=== PATIENT | male | born 1950 | race Caucasian/White ===

== ENCOUNTER 2017-12-01 18:59 | Inpatient (IN) | payer OTHER ==
[~2017-12-01] VITALS: Ht 185.4 cm; Wt 148.0 kg
[2017-12-01 20:11] LABS: Basophils # (auto) 0 uL; Basophils % (auto) 0.3 % (0.0-2.0); Eosinophils # (auto) 0 uL; Eosinophils % (auto) 0.2 % (0.0-7.0); Hematocrit 33.3 % (41.0-53.0); Hemoglobin 10.8 g/dL (13.5-17.5); Lymphocytes # (auto) 0.6 uL; Lymphocytes % (auto) 3.9 % (10.0-50.0); Mean Corpuscular Hemoglobin 32.6 pg (28.0-32.0); Mean Corpuscular Hgb Conc. 32.6 g/dL (32.0-36.0); Monocytes # (auto) 0.9 uL; Monocytes % (auto) 6.2 % (0.0-12.0); Neutrophils # (auto) 13.2 uL; Neutrophils % (auto) 89.4 % (37.0-80.0); Nucleated Red Blood Cells % 0.1 %; Platelet Count (auto) 272 10^3/uL (140-450); Red Blood Cells 3.33 10^6/uL (4.5-5.90); Red Cell Distribution Width 16.1 % (11.8-14.3); White Blood Cell 14.8 10^3/uL (4.4-10.8)
[2017-12-01] MEDS ORDERED: ACETAMINOPHEN 325 MG TAB PO ONE (21:00)
[2017-12-01 21:25] LABS: Potassium 4.1 mmol/L (3.5-5.1)
[2017-12-01 21:26] LABS: Albumin 2.5 g/dL (3.4-5.0); BUN/Creatinine Ratio 4.6; Bilirubin, Total 0.5 mg/dL (0.2-1.0); Calcium 7.2 mg/dL (8.5-10.1); Total Protein 7.8 g/dL (6.4-8.2)
[2017-12-02] MEDS ORDERED: ACETAMINOPHEN 325 MG TAB PO PRN ×2 (00:30→05:30)
[2017-12-02] MEDS: cefTRIAXone 1GM/10ml IVPUSH 10 ML IV SCH ×2 (01:00→21:32)
[2017-12-02 01:15] LABS: INR 1.03 (0.9-1.15); Partial Thromboplastin Time 29.7 sec (23.78-33.04)
[2017-12-02] MEDS ORDERED: CALCIUM GLUC 4.65meq/50ml D5AE 50 ML IV ONE (05:30)
[2017-12-02] MEDS ORDERED: TEMAZEPAM 15 MG CAP PO PRN (05:30)
[2017-12-02] MEDS ORDERED: MORPHINE SULF INJ 2 MG/ML SYRINGE 1ML IV PRN (05:30)
[2017-12-02] MEDS ORDERED: ONDANSETRON HCL 4 MG/2 ML VIAL IV PRN (05:30)
[2017-12-02] MEDS ORDERED: ALBUMIN 5% 250 ML IV ONE (05:30)
[2017-12-02] MEDS ORDERED: NITROGLYCERIN 0.4 MG SL TAB SL PRN (05:30)
[2017-12-02] MEDS ORDERED: DEXTROSE (50%) 50ML SYRG IV PRN (05:30)
[2017-12-02] MEDS: InsuLIN REG 1unit/0.01ml Soln (100units/ml) SC SCH ×3 (06:48→18:31)
[2017-12-02] MEDS: ACCU-CHEK COMFORT CURVE STRIP VI SCH ×3 (06:48→17:44)
[2017-12-02 08:37] VITALS: BP 126/47
[2017-12-02 09:00] VITALS: BP 126/47
[2017-12-02] MEDS: PANTOPRAZOLE 40 MG TAB PO SCH (09:49)
[2017-12-02] MEDS: CLOPIDOGREL BISULFATE 75 MG TAB PO SCH (09:49)
[2017-12-02] MEDS ORDERED: ATO40T PO (09:56)
[2017-12-02] MEDS ORDERED: CRAN125T PO (09:56)
[2017-12-02] MEDS ORDERED: FURO40TA4 PO (09:56)
[2017-12-02] MEDS ORDERED: POTA1080 PO (09:56)
[2017-12-02] MEDS ORDERED: ASCO500T11 PO (09:56)
[2017-12-02] MEDS ORDERED: FERR27TA2 PO (09:56)
[2017-12-02] MEDS ORDERED: INSUINJ2 SC (09:56)
[2017-12-02] MEDS ORDERED: DIPH25CA6 PO (09:56)
[2017-12-02] MEDS ORDERED: CYAN100L PO (09:56)
[2017-12-02] MEDS ORDERED: MAGN400C2 PO (09:56)
[2017-12-02] MEDS ORDERED: TRAM50TA2 PO (09:56)
[2017-12-02] MEDS ORDERED: FERR1TAB36 PO (09:56)
[2017-12-02] MEDS ORDERED: ALPR0.5T7 PO (09:56)
[2017-12-02] MEDS ORDERED: INSREG3 IV (09:56)
[2017-12-02] MEDS ORDERED: ZINC220C8 PO (09:56)
[2017-12-02] MEDS ORDERED: LINE600T PO (09:56)
[2017-12-02] MEDS ORDERED: LEVOFLOXACIN 250MG 50 ML IV SCH (10:00)
[2017-12-02 13:00] VITALS: BP 124/46
[2017-12-02] MEDS ORDERED: VANCOMYCIN PER PHARMACY 0 MG IV SCH (15:45)
[2017-12-02] MEDS ORDERED: VANCOMYCIN 1,500 MG in D5W 5% 250 ML IV ONE (16:00)
[2017-12-02 17:00] VITALS: BP 126/50
[2017-12-02] MEDS: ATORVASTATIN 20 MG TAB PO SCH (21:32)
[2017-12-02 22:00] VITALS: BP 137/75
[2017-12-03] VITALS (8 sets, daily range): BP systolic 99–153; BP diastolic 30–86
[2017-12-03] MEDS: InsuLIN REG 1unit/0.01ml Soln (100units/ml) SC SCH ×4 (00:09→16:57)
[2017-12-03] MEDS: ACCU-CHEK COMFORT CURVE STRIP VI SCH ×4 (00:09→16:57)
[2017-12-03 07:33] LABS: Albumin 1.9 g/dL (3.4-5.0); Bilirubin, Total 0.3 mg/dL (0.2-1.0); Calcium 6.2 mg/dL (8.5-10.1); Potassium 3.5 mmol/L (3.5-5.1); Total Protein 6.1 g/dL (6.4-8.2)
[2017-12-03] MEDS ORDERED: EPOETIN ALFA 2,000 UNIT/1 ML VIAL IV ONE (09:00)
[2017-12-03 09:21] LABS: Basophils # (auto) 0.1 uL; Basophils % (auto) 1.1 % (0.0-2.0); Eosinophils # (auto) 0.2 uL; Eosinophils % (auto) 3.4 % (0.0-7.0); Hematocrit 26.6 % (41.0-53.0); Hemoglobin 8.8 g/dL (13.5-17.5); Lymphocytes # (auto) 1.2 uL; Lymphocytes % (auto) 22.5 % (10.0-50.0); Mean Corpuscular Hemoglobin 32.3 pg (28.0-32.0); Mean Corpuscular Hgb Conc. 32.9 g/dL (32.0-36.0); Mean Corpuscular Volume 98.2 fL (80.0-100.0); Monocytes # (auto) 0.3 uL; Monocytes % (auto) 6.1 % (0.0-12.0); Neutrophils # (auto) 3.5 uL; Neutrophils % (auto) 66.9 % (37.0-80.0); Platelet Count (auto) 195 10^3/uL (140-450); Red Blood Cells 2.71 10^6/uL (4.5-5.90); White Blood Cell 5.2 10^3/uL (4.4-10.8)
[2017-12-03] MEDS: PANTOPRAZOLE 40 MG TAB PO SCH (09:29)
[2017-12-03] MEDS: CLOPIDOGREL BISULFATE 75 MG TAB PO SCH (09:30)
[2017-12-03] MEDS: ATORVASTATIN 20 MG TAB PO SCH (22:34)
[2017-12-03] MEDS: cefTRIAXone 1GM/10ml IVPUSH 10 ML IV SCH (22:34)
[2017-12-04] MEDS: InsuLIN REG 1unit/0.01ml Soln (100units/ml) SC SCH ×4 (00:23→17:58)
[2017-12-04] MEDS: ACCU-CHEK COMFORT CURVE STRIP VI SCH ×4 (00:23→17:52)
[2017-12-04 04:49] VITALS: BP 126/53
[2017-12-04 08:00] VITALS: BP 113/46
[2017-12-04 09:21] VITALS: BP 113/46
[2017-12-04] MEDS: PANTOPRAZOLE 40 MG TAB PO SCH (10:10)
[2017-12-04] MEDS: CLOPIDOGREL BISULFATE 75 MG TAB PO SCH (10:11)
[2017-12-04 13:00] VITALS: BP 125/57
[2017-12-04] MEDS ORDERED: cefTRIAXone 1GM/10ml IVPUSH 10 ML IV ONE (17:00)
[2017-12-04 17:13] VITALS: BP 135/89
[2017-12-04 17:31] VITALS: BP 135/89
== END 2017-12-04 20:45 | disposition home health service (06) | DRG 871 ==
LOC: ER 19:04 → TELE 19:05 → TELE-CENTR 12-02 08:40
PROVIDERS: ADMIT Nurse Practitioner; ATTEND Internal Medicine Geriatric Medicine
PROC: 5A1D70Z Performance of Urinary Filtration, Intermittent, Less than 6 Hours Per Day (ICD-10-PCS; principal; 2017-12-03)
DX: A41.9 Sepsis, unspecified organism (principal); N18.6 End stage renal disease; I13.2 Hypertensive heart and chronic kidney disease with heart failure and with stage 5 chronic kidney disease, or end stage renal disease; K52.1 Toxic gastroenteritis and colitis; Z89.512 Acquired absence of left leg below knee; Z89.511 Acquired absence of right leg below knee; Z99.2 Dependence on renal dialysis; J44.9 Chronic obstructive pulmonary disease, unspecified; I50.9 Heart failure, unspecified; I25.10 Atherosclerotic heart disease of native coronary artery without angina pectoris; E66.01 Morbid (severe) obesity due to excess calories; E11.65 Type 2 diabetes mellitus with hyperglycemia; E11.22 Type 2 diabetes mellitus with diabetic chronic kidney disease; T50.905A Adverse effect of unspecified drugs, medicaments and biological substances, initial encounter; Y92.89 Other specified places as the place of occurrence of the external cause; I25.2 Old myocardial infarction
CPT/HCPCS: 36415; 71045; 74176; 76700; 80053; 80202; 82553; 82962; 83605; 83880; 84484; 85025; 85379; 85610; 85730; 87040; 87077; 87081; 87186; 87493; 90935; 93005; 96365; 96366; 96368; J0610; J0696; J1815; J7060; Q4081

== ENCOUNTER 2020-04-04 19:57 | Inpatient (IN) | payer OTHER ==
[~2020-04-04] VITALS: Ht 185.4 cm; Wt 141.9 kg
[~2020-04-04 19:57] MED LIST: ALPR0.5T7 PO; ASCO500T11 PO; ATO40T PO; CRAN125T PO; CYAN100L PO; DIPH25CA6 PO; FERR1TAB36 PO; FERR27TA2 PO; FURO40TA4 PO; INSREG3 IV; INSUINJ2 SC; LINE1TAB6 PO; MAGN400C2 PO; POTA1080 PO; TRAM50TA2 PO; ZINC220C8 PO
[2020-04-04 23:04] LABS: Basophils # (auto) 0 10 ^3/uL (0-0.2); Basophils % (auto) 0.1 % (0.0-2.0); Eosinophils # (auto) 0 10 ^3/uL (0-0.8); Hematocrit 32.2 % (41.0-53.0); Hemoglobin 10.7 g/dL (13.5-17.5); Lymphocytes # (auto) 0.3 10 ^3/uL (0.4-5.4); Mean Corpuscular Hemoglobin 33.6 pg (28.0-32.0); Mean Corpuscular Hgb Conc. 33.3 g/dL (32.0-36.0); Mean Corpuscular Volume 101.1 fL (80.0-100.0); Monocytes # (auto) 0.2 10 ^3/uL (0-1.3); Neutrophils % (auto) 92.9 % (37.0-80.0); Platelet Count (auto) 139 10^3/uL (140-450); Red Blood Cells 3.18 10^6/uL (4.5-5.90); Red Cell Distribution Width 14.1 % (11.8-14.3); White Blood Cell 7.5 10^3/uL (4.4-10.8)
[2020-04-04 23:26] LABS: Albumin 2.9 g/dL (3.4-5.0); BUN/Creatinine Ratio 8.9; Calcium 7.3 mg/dL (8.5-10.1)
[2020-04-04 23:40] LABS: Potassium 5.7 mmol/L (3.5-5.1)
[2020-04-04 23:42] LABS: Bilirubin, Total 0.4 mg/dL (0.2-1.0); Total Protein 7.4 g/dL (6.4-8.2)
[2020-04-04 23:43] LABS: INR 0.99 (0.9-1.15); Partial Thromboplastin Time 32.8 sec (23.0-31.2)
[2020-04-05] MEDS ORDERED: MORPHINE SULF INJ 2 MG/ML SYRINGE 1ML IV PRN (04:45)
[2020-04-05] MEDS ORDERED: ACETAMINOPHEN 500 MG TAB PO PRN (04:45)
[2020-04-05] MEDS ORDERED: SODIUM ZIRCONIUM CYCL 10 GM PAK PO ONE (04:45)
[2020-04-05] MEDS ORDERED: NITROGLYCERIN 0.4 MG SL TAB SL PRN (04:45)
[2020-04-05] MEDS ORDERED: DEXTROSE (50%) 50ML SYRG IV PRN (04:45)
[2020-04-05 05:40] LABS: Magnesium 3.3 mg/dL (1.6-2.6)
[2020-04-05] MEDS ORDERED: FUROSEMIDE 20 MG/2 ML VIAL IV SCH (06:00)
[2020-04-05 06:12] LABS: CRP High Sensitivity 6.42 mg/dL (< 0.3)
[2020-04-05] MEDS: InsuLIN REG 1unit/0.01ml Soln (100units/ml) SC SCH ×4 (06:47→22:40)
[2020-04-05] MEDS: ACCU-CHEK COMFORT CURVE STRIP VI SCH ×4 (06:47→21:52)
[2020-04-05] MEDS: SODIUM ZIRCONIUM CYCL 10 GM PAK PO SCH ×3 (09:45→17:47)
[2020-04-05] MEDS ORDERED: SODIUM CHL 0.9% 1000 ML BAG XX ONE (09:45)
[2020-04-05] MEDS: CLOPIDOGREL BISULFATE 75 MG TAB PO SCH (10:00)
[2020-04-05] MEDS: ASCORBIC ACID 1,000 MG TAB PO SCH (10:00)
[2020-04-05] MEDS: FUROSEMIDE 100 MG/10ML VIAL IV SCH (10:00)
[2020-04-05] MEDS: CHOLECALCIFEROL (VITD3) 2,000 UNIT CAP PO SCH (10:00)
[2020-04-05] MEDS: DexAMETHasone SOD PHOS 10MG/1ML VIAL INJ IV SCH (10:00)
[2020-04-05] MEDS: PANTOPRAZOLE 40 MG TAB PO SCH (10:00)
[2020-04-05] MEDS: ZINC SULFATE 220mg CAP or TAB PO SCH (10:00)
[2020-04-05] MEDS: ASPirin 81 mg TAB PO SCH (10:00)
[2020-04-05] MEDS: DOXYCYCLINE 100MG/250ML 250 ML IV SCH ×3 (10:00→22:00)
[2020-04-05] MEDS: ENOXAPARIN SOD 40 MG/0.4 ML SYRINGE SC SCH (10:00)
[2020-04-05 10:24] LABS: Basophils # (auto) 0 10 ^3/uL (0-0.2); Basophils % (auto) 0.2 % (0.0-2.0); Eosinophils # (auto) 0 10 ^3/uL (0-0.8); Lymphocytes # (auto) 0.4 10 ^3/uL (0.4-5.4); Monocytes # (auto) 0.4 10 ^3/uL (0-1.3); Nucleated Red Blood Cells % 0.1 %
[2020-04-05 10:27] LABS: Hematocrit 30.8 % (41.0-53.0); Hemoglobin 10.4 g/dL (13.5-17.5); Lymphocytes % (auto) 5.6 % (10.0-50.0); Mean Corpuscular Hemoglobin 34.2 pg (28.0-32.0); Mean Corpuscular Hgb Conc. 33.6 g/dL (32.0-36.0); Mean Corpuscular Volume 101.8 fL (80.0-100.0); Monocytes % (auto) 4.9 % (0.0-12.0); Neutrophils # (auto) 6.6 10 ^3/uL (1.6-8.6); Neutrophils % (auto) 89.3 % (37.0-80.0); Platelet Count (auto) 156 10^3/uL (140-450); Red Blood Cells 3.03 10^6/uL (4.5-5.90); Red Cell Distribution Width 14.2 % (11.8-14.3); White Blood Cell 7.4 10^3/uL (4.4-10.8)
[2020-04-05 13:00] VITALS: BP 158/65
[2020-04-05 17:00] VITALS: BP 142/63
[2020-04-05] MEDS: BUDESONIDE (INHALATION) 180 MCG IH IN SCH (20:30)
[2020-04-05] MEDS ORDERED: EPOETIN ALFA 10,000 UNIT/1 ML VIAL SC ONE (21:00)
[2020-04-05] MEDS: ATORVASTATIN 20 MG TAB PO SCH (21:52)
[2020-04-05 22:00] VITALS: BP 161/60
[2020-04-05] MEDS: cloNIDine HCL 0.1 MG TAB PO PRN (22:29)
[2020-04-05] MEDS: DOXYCYCLINE 100 MG TAB/CAP PO SCH (23:36)
[2020-04-06] MEDS: traMADol HCL 50 MG TAB PO PRN (00:30)
[2020-04-06] MEDS: LOPERAMIDE HCL 2 MG CAP PO PRN ×2 (02:45→10:25)
[2020-04-06 05:00] VITALS: BP 146/78
[2020-04-06] MEDS: ACCU-CHEK COMFORT CURVE STRIP VI SCH ×4 (06:42→21:44)
[2020-04-06] MEDS: SODIUM ZIRCONIUM CYCL 10 GM PAK PO SCH (06:42)
[2020-04-06] MEDS: InsuLIN REG 1unit/0.01ml Soln (100units/ml) SC SCH ×4 (06:51→22:58)
[2020-04-06 07:27] LABS: Basophils # (auto) 0 10 ^3/uL (0-0.2); Eosinophils # (auto) 0 10 ^3/uL (0-0.8); Lymphocytes # (auto) 0.3 10 ^3/uL (0.4-5.4); Monocytes # (auto) 0.4 10 ^3/uL (0-1.3); Neutrophils # (auto) 6.1 10 ^3/uL (1.6-8.6)
[2020-04-06 07:30] LABS: Basophils % (auto) 0.1 % (0.0-2.0); Hematocrit 29.2 % (41.0-53.0); Lymphocytes % (auto) 4.3 % (10.0-50.0); Mean Corpuscular Hemoglobin 34.8 pg (28.0-32.0); Mean Corpuscular Hgb Conc. 34.3 g/dL (32.0-36.0); Mean Corpuscular Volume 101.3 fL (80.0-100.0); Monocytes % (auto) 5.5 % (0.0-12.0); Neutrophils % (auto) 90.1 % (37.0-80.0); Platelet Count (auto) 147 10^3/uL (140-450); Red Blood Cells 2.88 10^6/uL (4.5-5.90); Red Cell Distribution Width 14.4 % (11.8-14.3); White Blood Cell 6.8 10^3/uL (4.4-10.8)
[2020-04-06 07:50] LABS: Potassium 3.9 mmol/L (3.5-5.1)
[2020-04-06 08:00] LABS: Albumin 2.3 g/dL (3.4-5.0); BUN/Creatinine Ratio 8.5; Bilirubin, Total 0.5 mg/dL (0.2-1.0); Calcium 7.4 mg/dL (8.5-10.1); Total Protein 7.1 g/dL (6.4-8.2)
[2020-04-06 09:00] VITALS: BP 178/67
[2020-04-06] MEDS: ZINC SULFATE 220mg CAP or TAB PO SCH (09:04)
[2020-04-06] MEDS: ASPirin 81 mg TAB PO SCH (09:04)
[2020-04-06] MEDS: CLOPIDOGREL BISULFATE 75 MG TAB PO SCH (09:04)
[2020-04-06] MEDS: CHOLECALCIFEROL (VITD3) 2,000 UNIT CAP PO SCH (09:05)
[2020-04-06] MEDS: ASCORBIC ACID 1,000 MG TAB PO SCH (09:05)
[2020-04-06] MEDS: ENOXAPARIN SOD 40 MG/0.4 ML SYRINGE SC SCH (09:05)
[2020-04-06] MEDS: PANTOPRAZOLE 40 MG TAB PO SCH (09:05)
[2020-04-06] MEDS: DOXYCYCLINE 100 MG TAB/CAP PO SCH ×2 (09:05→21:44)
[2020-04-06] MEDS: BUDESONIDE (INHALATION) 180 MCG IH IN SCH ×2 (10:00→21:13)
[2020-04-06] MEDS: DexAMETHasone SOD PHOS 10MG/1ML VIAL INJ IV SCH (10:23)
[2020-04-06] MEDS: FUROSEMIDE 100 MG/10ML VIAL IV SCH (10:24)
[2020-04-06 12:50] VITALS: BP 125/78
[2020-04-06] MEDS: ATORVASTATIN 20 MG TAB PO SCH (21:44)
[2020-04-06 22:00] VITALS: BP 147/88
[2020-04-06] MEDS: ALBUTEROL SULF HFA 90MCG INH 200DOSE IN PRN (22:58)
[2020-04-07] VITALS (7 sets, daily range): BP systolic 123–160; BP diastolic 30–94
[2020-04-07] MEDS: LOPERAMIDE HCL 2 MG CAP PO PRN ×3 (01:00→18:58)
[2020-04-07] MEDS: ACCU-CHEK COMFORT CURVE STRIP VI SCH ×4 (06:08→22:10)
[2020-04-07] MEDS: InsuLIN REG 1unit/0.01ml Soln (100units/ml) SC SCH ×4 (06:13→22:17)
[2020-04-07] MEDS: BUDESONIDE (INHALATION) 180 MCG IH IN SCH ×3 (07:00→20:59)
[2020-04-07] MEDS: DexAMETHasone SOD PHOS 10MG/1ML VIAL INJ IV SCH (09:19)
[2020-04-07] MEDS: ASPirin 81 mg TAB PO SCH (09:19)
[2020-04-07] MEDS: FUROSEMIDE 100 MG/10ML VIAL IV SCH (09:19)
[2020-04-07] MEDS: ZINC SULFATE 220mg CAP or TAB PO SCH (09:20)
[2020-04-07] MEDS: PANTOPRAZOLE 40 MG TAB PO SCH (09:20)
[2020-04-07] MEDS: CLOPIDOGREL BISULFATE 75 MG TAB PO SCH (09:20)
[2020-04-07] MEDS: DOXYCYCLINE 100 MG TAB/CAP PO SCH ×2 (09:21→21:49)
[2020-04-07] MEDS: ASCORBIC ACID 1,000 MG TAB PO SCH (09:21)
[2020-04-07] MEDS: ENOXAPARIN SOD 40 MG/0.4 ML SYRINGE SC SCH (09:21)
[2020-04-07] MEDS: CHOLECALCIFEROL (VITD3) 2,000 UNIT CAP PO SCH (09:21)
[2020-04-07] MEDS: cloNIDine HCL 0.1 MG TAB PO PRN (17:32)
[2020-04-07] MEDS: ALBUTEROL SULF HFA 90MCG INH 200DOSE IN PRN (21:00)
[2020-04-07] MEDS: ATORVASTATIN 20 MG TAB PO SCH (21:49)
[2020-04-07] MEDS: ONDANSETRON HCL 4 MG/2 ML VIAL IV PRN (23:42)
[2020-04-08 05:00] VITALS: BP 130/59
[2020-04-08 05:14] VITALS: BP 130/59
[2020-04-08] MEDS: ACCU-CHEK COMFORT CURVE STRIP VI SCH ×4 (06:38→21:28)
[2020-04-08] MEDS: InsuLIN REG 1unit/0.01ml Soln (100units/ml) SC SCH ×4 (06:43→21:42)
[2020-04-08] MEDS: ALBUTEROL SULF HFA 90MCG INH 200DOSE IN PRN (07:25)
[2020-04-08] MEDS: BUDESONIDE (INHALATION) 180 MCG IH IN SCH (07:25)
[2020-04-08] MEDS: DexAMETHasone SOD PHOS 10MG/1ML VIAL INJ IV SCH (08:11)
[2020-04-08] MEDS: ONDANSETRON HCL 4 MG/2 ML VIAL IV PRN (08:28)
[2020-04-08 09:00] VITALS: BP 135/79
[2020-04-08 09:37] LABS: BUN/Creatinine Ratio 11.1; Calcium 7.2 mg/dL (8.5-10.1); Potassium 4.1 mmol/L (3.5-5.1)
[2020-04-08] MEDS: ZINC SULFATE 220mg CAP or TAB PO SCH (10:04)
[2020-04-08] MEDS: FUROSEMIDE 100 MG/10ML VIAL IV SCH (10:04)
[2020-04-08] MEDS: ASPirin 81 mg TAB PO SCH (10:04)
[2020-04-08] MEDS: CLOPIDOGREL BISULFATE 75 MG TAB PO SCH (10:05)
[2020-04-08] MEDS: PANTOPRAZOLE 40 MG TAB PO SCH (10:05)
[2020-04-08] MEDS: ENOXAPARIN SOD 40 MG/0.4 ML SYRINGE SC SCH (10:06)
[2020-04-08] MEDS: CHOLECALCIFEROL (VITD3) 2,000 UNIT CAP PO SCH (10:06)
[2020-04-08] MEDS: DOXYCYCLINE 100 MG TAB/CAP PO SCH ×2 (10:06→21:27)
[2020-04-08] MEDS: ASCORBIC ACID 1,000 MG TAB PO SCH (10:06)
[2020-04-08 13:00] VITALS: BP 145/66
[2020-04-08 17:00] VITALS: BP 168/78
[2020-04-08] MEDS: cloNIDine HCL 0.1 MG TAB PO PRN (18:17)
[2020-04-08 20:00] VITALS: BP 154/95
[2020-04-08] MEDS: ATORVASTATIN 20 MG TAB PO SCH (21:27)
[2020-04-09 00:37] VITALS: BP 154/95
[2020-04-09] MEDS: ALBUTEROL SULF HFA 90MCG INH 200DOSE IN PRN ×2 (02:49→21:04)
[2020-04-09] MEDS: ACCU-CHEK COMFORT CURVE STRIP VI SCH ×4 (06:28→21:06)
[2020-04-09] MEDS: InsuLIN REG 1unit/0.01ml Soln (100units/ml) SC SCH ×4 (06:31→21:06)
[2020-04-09 06:58] LABS: Basophils # (auto) 0 10 ^3/uL (0-0.2); Basophils % (auto) 0.1 % (0.0-2.0); Eosinophils # (auto) 0 10 ^3/uL (0-0.8); Lymphocytes # (auto) 0.2 10 ^3/uL (0.4-5.4); Monocytes # (auto) 0.4 10 ^3/uL (0-1.3); Red Cell Distribution Width 13.6 % (11.8-14.3)
[2020-04-09 07:00] LABS: Hematocrit 28.2 % (41.0-53.0); Hemoglobin 9.6 g/dL (13.5-17.5); Lymphocytes % (auto) 3.7 % (10.0-50.0); Mean Corpuscular Hemoglobin 33.8 pg (28.0-32.0); Mean Corpuscular Hgb Conc. 34.1 g/dL (32.0-36.0); Mean Corpuscular Volume 99.3 fL (80.0-100.0); Monocytes % (auto) 6.3 % (0.0-12.0); Neutrophils # (auto) 5.8 10 ^3/uL (1.6-8.6); Neutrophils % (auto) 89.9 % (37.0-80.0); Platelet Count (auto) 162 10^3/uL (140-450); Red Blood Cells 2.84 10^6/uL (4.5-5.90); White Blood Cell 6.5 10^3/uL (4.4-10.8)
[2020-04-09] MEDS ORDERED: SODIUM CHL 0.9% 1000 ML BAG XX ONE (07:00)
[2020-04-09 07:27] LABS: Potassium 4.4 mmol/L (3.5-5.1)
[2020-04-09 07:56] LABS: BUN/Creatinine Ratio 11.7; Bilirubin, Total 0.3 mg/dL (0.2-1.0); CRP High Sensitivity 9.96 mg/dL (< 0.3); Calcium 7.4 mg/dL (8.5-10.1); Magnesium 2.9 mg/dL (1.6-2.6); Total Protein 6.6 g/dL (6.4-8.2)
[2020-04-09 09:00] VITALS: BP 155/112
[2020-04-09] MEDS: DexAMETHasone SOD PHOS 10MG/1ML VIAL INJ IV SCH (09:49)
[2020-04-09] MEDS: ASPirin 81 mg TAB PO SCH (09:49)
[2020-04-09] MEDS: PANTOPRAZOLE 40 MG TAB PO SCH (09:50)
[2020-04-09] MEDS: ASCORBIC ACID 1,000 MG TAB PO SCH (09:50)
[2020-04-09] MEDS: DOXYCYCLINE 100 MG TAB/CAP PO SCH ×2 (09:50→21:17)
[2020-04-09] MEDS: ZINC SULFATE 220mg CAP or TAB PO SCH (09:50)
[2020-04-09] MEDS: CLOPIDOGREL BISULFATE 75 MG TAB PO SCH (09:50)
[2020-04-09] MEDS: ENOXAPARIN SOD 40 MG/0.4 ML SYRINGE SC SCH (09:51)
[2020-04-09] MEDS: CHOLECALCIFEROL (VITD3) 2,000 UNIT CAP PO SCH (09:51)
[2020-04-09] MEDS: FUROSEMIDE 100 MG/10ML VIAL IV SCH (09:52)
[2020-04-09] MEDS: BUDESONIDE (INHALATION) 180 MCG IH IN SCH ×2 (10:00→22:00)
[2020-04-09 13:00] VITALS: BP 104/77
[2020-04-09 17:00] VITALS: BP 137/84
[2020-04-09] MEDS: ATORVASTATIN 20 MG TAB PO SCH (21:17)
[2020-04-09] MEDS: ALPRAZolam 0.25 MG TAB PO PRN (21:17)
[2020-04-09 23:16] VITALS: BP 148/58
[2020-04-10 05:00] VITALS: BP 120/65
[2020-04-10] MEDS: ACCU-CHEK COMFORT CURVE STRIP VI SCH ×4 (06:39→22:05)
[2020-04-10] MEDS: InsuLIN REG 1unit/0.01ml Soln (100units/ml) SC SCH ×4 (06:43→22:09)
[2020-04-10 07:55] LABS: Basophils # (auto) 0 10 ^3/uL (0-0.2); Basophils % (auto) 0.1 % (0.0-2.0); Eosinophils # (auto) 0 10 ^3/uL (0-0.8); Hematocrit 29.6 % (41.0-53.0); Lymphocytes # (auto) 0.3 10 ^3/uL (0.4-5.4); Lymphocytes % (auto) 3.1 % (10.0-50.0); Mean Corpuscular Hemoglobin 33.4 pg (28.0-32.0); Mean Corpuscular Hgb Conc. 33.7 g/dL (32.0-36.0); Mean Corpuscular Volume 99.2 fL (80.0-100.0); Monocytes # (auto) 0.5 10 ^3/uL (0-1.3); Monocytes % (auto) 5.3 % (0.0-12.0); Neutrophils % (auto) 91.5 % (37.0-80.0); Platelet Count (auto) 204 10^3/uL (140-450); Red Blood Cells 2.99 10^6/uL (4.5-5.90); Red Cell Distribution Width 13.5 % (11.8-14.3); White Blood Cell 8.8 10^3/uL (4.4-10.8)
[2020-04-10 08:00] VITALS: BP 153/51
[2020-04-10] MEDS: traMADol HCL 50 MG TAB PO PRN (08:04)
[2020-04-10 08:10] LABS: Magnesium 2.9 mg/dL (1.6-2.6); Potassium 4.7 mmol/L (3.5-5.1)
[2020-04-10 08:12] LABS: Calcium 7.3 mg/dL (8.5-10.1)
[2020-04-10 08:16] LABS: BUN/Creatinine Ratio 13.2
[2020-04-10] MEDS: BUDESONIDE (INHALATION) 180 MCG IH IN SCH ×2 (10:00→22:27)
[2020-04-10] MEDS: ENOXAPARIN SOD 40 MG/0.4 ML SYRINGE SC SCH (10:00)
[2020-04-10] MEDS: DexAMETHasone SOD PHOS 10MG/1ML VIAL INJ IV SCH (11:20)
[2020-04-10] MEDS: FUROSEMIDE 100 MG/10ML VIAL IV SCH (11:20)
[2020-04-10] MEDS: DOXYCYCLINE 100 MG TAB/CAP PO SCH ×2 (11:21→22:05)
[2020-04-10] MEDS: ZINC SULFATE 220mg CAP or TAB PO SCH (11:21)
[2020-04-10] MEDS: PANTOPRAZOLE 40 MG TAB PO SCH (11:21)
[2020-04-10] MEDS: CLOPIDOGREL BISULFATE 75 MG TAB PO SCH (11:21)
[2020-04-10] MEDS: ASPirin 81 mg TAB PO SCH (11:21)
[2020-04-10] MEDS: ASCORBIC ACID 1,000 MG TAB PO SCH (11:22)
[2020-04-10] MEDS: CHOLECALCIFEROL (VITD3) 2,000 UNIT CAP PO SCH (11:22)
[2020-04-10 13:00] VITALS: BP 154/57
[2020-04-10] MEDS ORDERED: SODIUM CHL 0.9% 1000 ML BAG XX ONE (16:15)
[2020-04-10 16:42] VITALS: BP 156/60
[2020-04-10] MEDS: ATORVASTATIN 20 MG TAB PO SCH (22:05)
[2020-04-10 23:05] VITALS: BP 117/69
[2020-04-11] MEDS: ALBUTEROL SULF HFA 90MCG INH 200DOSE IN PRN ×4 (01:24→19:53)
[2020-04-11] MEDS: ACCU-CHEK COMFORT CURVE STRIP VI SCH ×4 (07:07→22:09)
[2020-04-11] MEDS: InsuLIN REG 1unit/0.01ml Soln (100units/ml) SC SCH ×4 (07:09→22:15)
[2020-04-11] MEDS: BUDESONIDE (INHALATION) 180 MCG IH IN SCH ×2 (07:50→19:20)
[2020-04-11] MEDS: ONDANSETRON HCL 4 MG/2 ML VIAL IV PRN (08:59)
[2020-04-11 09:00] VITALS: BP 107/47
[2020-04-11] MEDS: DexAMETHasone SOD PHOS 10MG/1ML VIAL INJ IV SCH (09:00)
[2020-04-11] MEDS: ENOXAPARIN SOD 40 MG/0.4 ML SYRINGE SC SCH (09:01)
[2020-04-11] MEDS: FUROSEMIDE 100 MG/10ML VIAL IV SCH (09:01)
[2020-04-11] MEDS: ZINC SULFATE 220mg CAP or TAB PO SCH (09:01)
[2020-04-11] MEDS: ASPirin 81 mg TAB PO SCH (09:02)
[2020-04-11] MEDS: CLOPIDOGREL BISULFATE 75 MG TAB PO SCH (09:03)
[2020-04-11] MEDS: PANTOPRAZOLE 40 MG TAB PO SCH (09:03)
[2020-04-11] MEDS: CHOLECALCIFEROL (VITD3) 2,000 UNIT CAP PO SCH (09:04)
[2020-04-11] MEDS: DOXYCYCLINE 100 MG TAB/CAP PO SCH ×2 (09:04→22:09)
[2020-04-11] MEDS: ASCORBIC ACID 1,000 MG TAB PO SCH (09:04)
[2020-04-11 13:00] VITALS: BP 141/72
[2020-04-11 16:00] VITALS: BP 126/63
[2020-04-11 20:00] VITALS: BP 141/74
[2020-04-11] MEDS: ATORVASTATIN 20 MG TAB PO SCH (22:09)
[2020-04-12] VITALS: BP 141/74
[2020-04-12] MEDS: ACCU-CHEK COMFORT CURVE STRIP VI SCH ×4 (06:43→21:41)
[2020-04-12] MEDS: InsuLIN REG 1unit/0.01ml Soln (100units/ml) SC SCH ×4 (06:49→21:48)
[2020-04-12 08:01] LABS: Basophils # (auto) 0 10 ^3/uL (0-0.2); Basophils % (auto) 0.1 % (0.0-2.0); Eosinophils # (auto) 0 10 ^3/uL (0-0.8); Hematocrit 30.5 % (41.0-53.0); Hemoglobin 10.2 g/dL (13.5-17.5); Lymphocytes # (auto) 0.3 10 ^3/uL (0.4-5.4); Lymphocytes % (auto) 2.8 % (10.0-50.0); Mean Corpuscular Hemoglobin 33.3 pg (28.0-32.0); Mean Corpuscular Hgb Conc. 33.5 g/dL (32.0-36.0); Mean Corpuscular Volume 99.1 fL (80.0-100.0); Monocytes # (auto) 0.7 10 ^3/uL (0-1.3); Monocytes % (auto) 6.1 % (0.0-12.0); Neutrophils # (auto) 10.5 10 ^3/uL (1.6-8.6); Platelet Count (auto) 223 10^3/uL (140-450); Red Blood Cells 3.08 10^6/uL (4.5-5.90); Red Cell Distribution Width 13.5 % (11.8-14.3); White Blood Cell 11.5 10^3/uL (4.4-10.8)
[2020-04-12 08:29] LABS: Potassium 4.7 mmol/L (3.5-5.1)
[2020-04-12 08:35] LABS: BUN/Creatinine Ratio 14.4; Calcium 7.5 mg/dL (8.5-10.1)
[2020-04-12] MEDS: BUDESONIDE (INHALATION) 180 MCG IH IN SCH ×2 (09:56→19:06)
[2020-04-12] MEDS: ALBUTEROL SULF HFA 90MCG INH 200DOSE IN PRN ×2 (09:56→19:06)
[2020-04-12] MEDS: FUROSEMIDE 100 MG/10ML VIAL IV SCH (10:00)
[2020-04-12] MEDS: ASPirin 81 mg TAB PO SCH (10:22)
[2020-04-12] MEDS: PANTOPRAZOLE 40 MG TAB PO SCH (10:22)
[2020-04-12] MEDS: ZINC SULFATE 220mg CAP or TAB PO SCH (10:22)
[2020-04-12] MEDS: CLOPIDOGREL BISULFATE 75 MG TAB PO SCH (10:22)
[2020-04-12] MEDS: DexAMETHasone SOD PHOS 10MG/1ML VIAL INJ IV SCH (10:22)
[2020-04-12] MEDS: CHOLECALCIFEROL (VITD3) 2,000 UNIT CAP PO SCH (10:23)
[2020-04-12] MEDS: ASCORBIC ACID 1,000 MG TAB PO SCH (10:23)
[2020-04-12] MEDS: ENOXAPARIN SOD 40 MG/0.4 ML SYRINGE SC SCH (10:23)
[2020-04-12] MEDS: DOXYCYCLINE 100 MG TAB/CAP PO SCH ×2 (10:23→21:42)
[2020-04-12] MEDS: LOPERAMIDE HCL 2 MG CAP PO PRN (10:26)
[2020-04-12] MEDS: ALPRAZolam 0.25 MG TAB PO PRN (13:52)
[2020-04-12 20:00] VITALS: BP 141/54
[2020-04-12] MEDS: ATORVASTATIN 20 MG TAB PO SCH (21:41)
[2020-04-13] MEDS: ALPRAZolam 0.25 MG TAB PO PRN (02:22)
[2020-04-13] MEDS: ONDANSETRON HCL 4 MG/2 ML VIAL IV PRN (05:28)
[2020-04-13] MEDS: ACCU-CHEK COMFORT CURVE STRIP VI SCH ×4 (06:28→22:12)
[2020-04-13] MEDS: InsuLIN REG 1unit/0.01ml Soln (100units/ml) SC SCH ×4 (06:43→22:13)
[2020-04-13] MEDS: BUDESONIDE (INHALATION) 180 MCG IH IN SCH ×2 (11:20→22:12)
[2020-04-13] MEDS: ENOXAPARIN SOD 40 MG/0.4 ML SYRINGE SC SCH (13:02)
[2020-04-13] MEDS: ASCORBIC ACID 1,000 MG TAB PO SCH (13:03)
[2020-04-13] MEDS: PANTOPRAZOLE 40 MG TAB PO SCH (13:03)
[2020-04-13] MEDS: CHOLECALCIFEROL (VITD3) 2,000 UNIT CAP PO SCH (13:03)
[2020-04-13] MEDS: DOXYCYCLINE 100 MG TAB/CAP PO SCH ×2 (13:03→22:12)
[2020-04-13] MEDS: ZINC SULFATE 220mg CAP or TAB PO SCH (13:04)
[2020-04-13] MEDS: ASPirin 81 mg TAB PO SCH (13:04)
[2020-04-13] MEDS: DexAMETHasone SOD PHOS 10MG/1ML VIAL INJ IV SCH (13:04)
[2020-04-13] MEDS: CLOPIDOGREL BISULFATE 75 MG TAB PO SCH (13:04)
[2020-04-13] MEDS: FUROSEMIDE 100 MG/10ML VIAL IV SCH (13:05)
[2020-04-13 16:00] VITALS: BP 135/51
[2020-04-13] MEDS: Ensure HIGH Protein Chocolate 8oz Bottle PO SCH (18:03)
[2020-04-13] MEDS: ATORVASTATIN 20 MG TAB PO SCH (22:12)
[2020-04-14] VITALS: BP 158/70
[2020-04-14] MEDS: ACCU-CHEK COMFORT CURVE STRIP VI SCH ×4 (06:44→21:46)
[2020-04-14] MEDS: InsuLIN REG 1unit/0.01ml Soln (100units/ml) SC SCH ×4 (06:45→21:47)
[2020-04-14] MEDS ORDERED: SODIUM CHL 0.9% 1000 ML BAG XX ONE (07:30)
[2020-04-14 08:00] VITALS: BP 139/70
[2020-04-14] MEDS: Ensure HIGH Protein Chocolate 8oz Bottle PO SCH ×3 (08:00→17:56)
[2020-04-14] MEDS: FUROSEMIDE 100 MG/10ML VIAL IV SCH (10:00)
[2020-04-14] MEDS: BUDESONIDE (INHALATION) 180 MCG IH IN SCH ×2 (10:30→22:00)
[2020-04-14] MEDS: ZINC SULFATE 220mg CAP or TAB PO SCH (10:33)
[2020-04-14] MEDS: ASPirin 81 mg TAB PO SCH (10:33)
[2020-04-14] MEDS: PANTOPRAZOLE 40 MG TAB PO SCH (10:34)
[2020-04-14] MEDS: DOXYCYCLINE 100 MG TAB/CAP PO SCH ×2 (10:34→21:46)
[2020-04-14] MEDS: ASCORBIC ACID 1,000 MG TAB PO SCH (10:34)
[2020-04-14] MEDS: CLOPIDOGREL BISULFATE 75 MG TAB PO SCH (10:34)
[2020-04-14] MEDS: CHOLECALCIFEROL (VITD3) 2,000 UNIT CAP PO SCH (10:34)
[2020-04-14] MEDS: DexAMETHasone SOD PHOS 10MG/1ML VIAL INJ IV SCH (10:35)
[2020-04-14] MEDS: ENOXAPARIN SOD 40 MG/0.4 ML SYRINGE SC SCH (10:35)
[2020-04-14 15:13] LABS: Basophils # (auto) 0 10 ^3/uL (0-0.2); Basophils % (auto) 0.1 % (0.0-2.0); Eosinophils # (auto) 0 10 ^3/uL (0-0.8); Eosinophils % (auto) 0.1 % (0.0-7.0); Hematocrit 28.5 % (41.0-53.0); Hemoglobin 9.8 g/dL (13.5-17.5); Lymphocytes # (auto) 0.3 10 ^3/uL (0.4-5.4); Lymphocytes % (auto) 2.2 % (10.0-50.0); Mean Corpuscular Hemoglobin 33.6 pg (28.0-32.0); Mean Corpuscular Hgb Conc. 34.3 g/dL (32.0-36.0); Mean Corpuscular Volume 97.8 fL (80.0-100.0); Monocytes # (auto) 0.5 10 ^3/uL (0-1.3); Neutrophils # (auto) 11.9 10 ^3/uL (1.6-8.6); Neutrophils % (auto) 93.6 % (37.0-80.0); Platelet Count (auto) 192 10^3/uL (140-450); Red Blood Cells 2.91 10^6/uL (4.5-5.90); Red Cell Distribution Width 13.3 % (11.8-14.3); White Blood Cell 12.7 10^3/uL (4.4-10.8)
[2020-04-14 16:00] VITALS: BP 131/75
[2020-04-14] MEDS ORDERED: EPOETIN ALFA 4,000 UNIT/ML VL SC ONE (21:00)
[2020-04-14] MEDS: ATORVASTATIN 20 MG TAB PO SCH (21:46)
[2020-04-15] VITALS: BP 127/43
[2020-04-15] MEDS: ALPRAZolam 0.25 MG TAB PO PRN ×3 (00:49→23:08)
[2020-04-15] MEDS: ACCU-CHEK COMFORT CURVE STRIP VI SCH ×4 (06:30→22:27)
[2020-04-15] MEDS: InsuLIN REG 1unit/0.01ml Soln (100units/ml) SC SCH ×4 (06:31→22:28)
[2020-04-15 07:29] LABS: Basophils # (auto) 0 10 ^3/uL (0-0.2); Basophils % (auto) 0.1 % (0.0-2.0); Eosinophils # (auto) 0 10 ^3/uL (0-0.8); Hematocrit 28.8 % (41.0-53.0); Lymphocytes # (auto) 0.2 10 ^3/uL (0.4-5.4); Mean Corpuscular Hemoglobin 33.9 pg (28.0-32.0); Mean Corpuscular Hgb Conc. 34.6 g/dL (32.0-36.0); Monocytes # (auto) 0.5 10 ^3/uL (0-1.3); Monocytes % (auto) 4.5 % (0.0-12.0); Neutrophils # (auto) 10.9 10 ^3/uL (1.6-8.6); Neutrophils % (auto) 93.4 % (37.0-80.0); Platelet Count (auto) 230 10^3/uL (140-450); Red Blood Cells 2.94 10^6/uL (4.5-5.90); Red Cell Distribution Width 13.1 % (11.8-14.3); White Blood Cell 11.7 10^3/uL (4.4-10.8)
[2020-04-15 07:56] LABS: Potassium 4.5 mmol/L (3.5-5.1)
[2020-04-15 08:00] VITALS: BP 122/58
[2020-04-15 08:10] LABS: BUN/Creatinine Ratio 14.6; Calcium 7.4 mg/dL (8.5-10.1); Magnesium 2.4 mg/dL (1.6-2.6)
[2020-04-15] MEDS: Ensure HIGH Protein Chocolate 8oz Bottle PO SCH ×3 (08:27→18:13)
[2020-04-15] MEDS: ASPirin 81 mg TAB PO SCH (09:53)
[2020-04-15] MEDS: FUROSEMIDE 100 MG/10ML VIAL IV SCH (09:53)
[2020-04-15] MEDS: ZINC SULFATE 220mg CAP or TAB PO SCH (09:53)
[2020-04-15] MEDS: ENOXAPARIN SOD 40 MG/0.4 ML SYRINGE SC SCH ×2 (09:54→10:00)
[2020-04-15] MEDS: CHOLECALCIFEROL (VITD3) 2,000 UNIT CAP PO SCH (09:54)
[2020-04-15] MEDS: PANTOPRAZOLE 40 MG TAB PO SCH (09:54)
[2020-04-15] MEDS: DOXYCYCLINE 100 MG TAB/CAP PO SCH ×2 (09:54→22:27)
[2020-04-15] MEDS: ASCORBIC ACID 1,000 MG TAB PO SCH (09:54)
[2020-04-15] MEDS: CLOPIDOGREL BISULFATE 75 MG TAB PO SCH (09:54)
[2020-04-15] MEDS: BUDESONIDE (INHALATION) 180 MCG IH IN SCH ×2 (10:00→19:40)
[2020-04-15 16:00] VITALS: BP 131/70
[2020-04-15] MEDS: traMADol HCL 50 MG TAB PO PRN (17:00)
[2020-04-15] MEDS: ALBUTEROL SULF HFA 90MCG INH 200DOSE IN PRN (19:40)
[2020-04-15] MEDS: ATORVASTATIN 20 MG TAB PO SCH (22:27)
[2020-04-16] MEDS: ACCU-CHEK COMFORT CURVE STRIP VI SCH ×4 (06:39→22:00)
[2020-04-16] MEDS: InsuLIN REG 1unit/0.01ml Soln (100units/ml) SC SCH ×4 (06:40→23:08)
[2020-04-16 08:00] VITALS: BP 132/77
[2020-04-16] MEDS: Ensure HIGH Protein Chocolate 8oz Bottle PO SCH ×3 (08:10→18:21)
[2020-04-16] MEDS: ASPirin 81 mg TAB PO SCH (09:18)
[2020-04-16] MEDS: ZINC SULFATE 220mg CAP or TAB PO SCH (09:18)
[2020-04-16] MEDS: BUDESONIDE (INHALATION) 180 MCG IH IN SCH ×2 (09:18→23:07)
[2020-04-16] MEDS: CLOPIDOGREL BISULFATE 75 MG TAB PO SCH (09:19)
[2020-04-16] MEDS: ENOXAPARIN SOD 40 MG/0.4 ML SYRINGE SC SCH (09:19)
[2020-04-16] MEDS: ASCORBIC ACID 1,000 MG TAB PO SCH (09:19)
[2020-04-16] MEDS: CHOLECALCIFEROL (VITD3) 2,000 UNIT CAP PO SCH (09:19)
[2020-04-16] MEDS: DOXYCYCLINE 100 MG TAB/CAP PO SCH ×2 (09:19→23:07)
[2020-04-16] MEDS: PANTOPRAZOLE 40 MG TAB PO SCH (09:19)
[2020-04-16] MEDS: ALPRAZolam 0.25 MG TAB PO PRN ×2 (09:20→20:26)
[2020-04-16] MEDS: FUROSEMIDE 100 MG/10ML VIAL IV SCH (10:00)
[2020-04-16 17:00] VITALS: BP 113/62
[2020-04-16] MEDS: ATORVASTATIN 20 MG TAB PO SCH (23:07)
[2020-04-17] MEDS: ALPRAZolam 0.25 MG TAB PO PRN ×2 (02:21→08:55)
[2020-04-17] MEDS: ACCU-CHEK COMFORT CURVE STRIP VI SCH ×4 (06:49→22:00)
[2020-04-17] MEDS: InsuLIN REG 1unit/0.01ml Soln (100units/ml) SC SCH ×4 (06:49→22:33)
[2020-04-17] MEDS: ALBUTEROL SULF HFA 90MCG INH 200DOSE IN PRN ×2 (07:35→20:17)
[2020-04-17] MEDS: BUDESONIDE (INHALATION) 180 MCG IH IN SCH ×2 (07:40→20:17)
[2020-04-17 08:00] VITALS: BP 108/56
[2020-04-17] MEDS: Ensure HIGH Protein Chocolate 8oz Bottle PO SCH (08:00)
[2020-04-17] MEDS: DOXYCYCLINE 100 MG TAB/CAP PO SCH ×2 (08:49→22:29)
[2020-04-17] MEDS: CLOPIDOGREL BISULFATE 75 MG TAB PO SCH (08:50)
[2020-04-17] MEDS: PANTOPRAZOLE 40 MG TAB PO SCH (08:50)
[2020-04-17] MEDS: CHOLECALCIFEROL (VITD3) 2,000 UNIT CAP PO SCH (08:50)
[2020-04-17] MEDS: ASPirin 81 mg TAB PO SCH (08:51)
[2020-04-17] MEDS: ASCORBIC ACID 1,000 MG TAB PO SCH (08:51)
[2020-04-17] MEDS: ZINC SULFATE 220mg CAP or TAB PO SCH (08:51)
[2020-04-17] MEDS: ENOXAPARIN SOD 40 MG/0.4 ML SYRINGE SC SCH (08:54)
[2020-04-17] MEDS: FUROSEMIDE 100 MG/10ML VIAL IV SCH (09:12)
[2020-04-17] MEDS ORDERED: SODIUM CHL 0.9% 1000 ML BAG XX ONE (09:30)
[2020-04-17] MEDS: Nepro With Carbsteady ButterPecan 8oz Carton PO SCH ×2 (12:00→18:00)
[2020-04-17] MEDS: ONDANSETRON HCL 4 MG/2 ML VIAL IV PRN (12:25)
[2020-04-17 16:00] VITALS: BP 115/45
[2020-04-17 16:47] VITALS: BP 115/45
[2020-04-17 20:17] VITALS: BP 118/49
[2020-04-17] MEDS: ATORVASTATIN 20 MG TAB PO SCH (22:28)
[2020-04-17] MEDS: LORazepam 2MG/ML-1ML VIAL IV PRN (22:34)
[2020-04-18] VITALS: BP 109/62
[2020-04-18 02:51] VITALS: BP 109/62
[2020-04-18] MEDS: LORazepam 2MG/ML-1ML VIAL IV PRN ×2 (04:34→09:48)
[2020-04-18] MEDS: InsuLIN REG 1unit/0.01ml Soln (100units/ml) SC SCH ×2 (06:57→11:40)
[2020-04-18] MEDS: ACCU-CHEK COMFORT CURVE STRIP VI SCH ×2 (06:57→11:30)
[2020-04-18] MEDS ORDERED: SODIUM CHL 0.9% 1000 ML BAG XX ONE (07:00)
[2020-04-18] MEDS: ALBUTEROL SULF HFA 90MCG INH 200DOSE IN PRN (07:40)
[2020-04-18] MEDS: BUDESONIDE (INHALATION) 180 MCG IH IN SCH (07:40)
[2020-04-18] MEDS: Nepro With Carbsteady ButterPecan 8oz Carton PO SCH ×2 (08:00→12:00)
[2020-04-18] MEDS: FUROSEMIDE 100 MG/10ML VIAL IV SCH (09:47)
[2020-04-18] MEDS: CLOPIDOGREL BISULFATE 75 MG TAB PO SCH (09:48)
[2020-04-18] MEDS: ASPirin 81 mg TAB PO SCH (09:49)
[2020-04-18] MEDS: DOXYCYCLINE 100 MG TAB/CAP PO SCH (09:49)
[2020-04-18] MEDS: PANTOPRAZOLE 40 MG TAB PO SCH (09:51)
[2020-04-18] MEDS: ZINC SULFATE 220mg CAP or TAB PO SCH (09:51)
[2020-04-18] MEDS: CHOLECALCIFEROL (VITD3) 2,000 UNIT CAP PO SCH (09:52)
[2020-04-18] MEDS: ENOXAPARIN SOD 40 MG/0.4 ML SYRINGE SC SCH (09:52)
[2020-04-18] MEDS: ASCORBIC ACID 1,000 MG TAB PO SCH (09:52)
[2020-04-18] MEDS ORDERED: ETOMIDATE (2MG/ML) 20ML VIAL IV ONE (12:37)
[2020-04-18] MEDS ORDERED: NOREPINEPHRINE 8 MG/250ML KIT 250 ML IV ONE (13:04)
[2020-04-18] MEDS ORDERED: DOPamine 1600MCG/ML D5W 250 ML IV ONE (13:12)
[2020-04-18] MEDS ORDERED: PHENYLEPHRINE IV 250 ML IV ONE (13:27)
[2020-04-18] MEDS ORDERED: DOPamine 1600MCG/ML D5W 250 ML IV SCH (13:30)
[2020-04-18] MEDS ORDERED: ATROPINE SULF 1 MG/10ml SYR IV ONE (17:17)
[2020-04-18] MEDS ORDERED: EPINEPHrine HCL 1 MG/10 ML SYRG IV ONE ×2 (17:17→19:05)
[2020-04-18] MEDS ORDERED: SODIUM BICARBONATE 8.4% INJ 50ML SYRINGE IV ONE (17:17)
[2020-04-18] MEDS ORDERED: EPOETIN ALFA 4,000 UNIT/ML VL SC ONE (21:00)
== END 2020-04-18 20:05 | DRG 208 ==
LOC: ER 19:57 → EDBD 19:57 → TELE 19:58 → TELE-WESTW 04-05 11:15 → ICU WEST 04-18 13:00
PROVIDERS: ADMIT Nurse Practitioner; ATTEND Internal Medicine Geriatric Medicine
PROC: 5A1D70Z Performance of Urinary Filtration, Intermittent, Less than 6 Hours Per Day (ICD-10-PCS; 2020-04-05)
PROC: 05HD33Z Insertion of Infusion Device into Right Cephalic Vein, Percutaneous Approach (ICD-10-PCS; 2020-04-06)
PROC: B54MZZA Ultrasonography of Right Upper Extremity Veins, Guidance (ICD-10-PCS; 2020-04-06)
PROC: 5A1D70Z Performance of Urinary Filtration, Intermittent, Less than 6 Hours Per Day (ICD-10-PCS; 2020-04-10)
PROC: 5A1D70Z Performance of Urinary Filtration, Intermittent, Less than 6 Hours Per Day (ICD-10-PCS; 2020-04-12)
PROC: 5A1D70Z Performance of Urinary Filtration, Intermittent, Less than 6 Hours Per Day (ICD-10-PCS; 2020-04-14)
PROC: 5A1D70Z Performance of Urinary Filtration, Intermittent, Less than 6 Hours Per Day (ICD-10-PCS; 2020-04-17)
PROC: 5A1935Z Respiratory Ventilation, Less than 24 Consecutive Hours (ICD-10-PCS; principal; 2020-04-18)
PROC: 5A12012 Performance of Cardiac Output, Single, Manual (ICD-10-PCS; 2020-04-18)
PROC: 0BH17EZ Insertion of Endotracheal Airway into Trachea, Via Natural or Artificial Opening (ICD-10-PCS; 2020-04-18)
DX: U07.1 COVID-19 (principal); J12.89 Other viral pneumonia; J96.01 Acute respiratory failure with hypoxia; N18.6 End stage renal disease; I13.2 Hypertensive heart and chronic kidney disease with heart failure and with stage 5 chronic kidney disease, or end stage renal disease; J98.11 Atelectasis; Z68.41 Body mass index [BMI] 40.0-44.9, adult; J44.0 Chronic obstructive pulmonary disease with (acute) lower respiratory infection; E87.5 Hyperkalemia; D63.1 Anemia in chronic kidney disease; E66.01 Morbid (severe) obesity due to excess calories; I27.20 Pulmonary hypertension, unspecified; I50.9 Heart failure, unspecified; Z99.2 Dependence on renal dialysis; E11.22 Type 2 diabetes mellitus with diabetic chronic kidney disease; F41.0 Panic disorder [episodic paroxysmal anxiety]; I25.10 Atherosclerotic heart disease of native coronary artery without angina pectoris; Z79.4 Long term (current) use of insulin; Z82.49 Family history of ischemic heart disease and other diseases of the circulatory system; Z82.5 Family history of asthma and other chronic lower respiratory diseases; Z83.3 Family history of diabetes mellitus; Z89.511 Acquired absence of right leg below knee; Z89.512 Acquired absence of left leg below knee; I46.9 Cardiac arrest, cause unspecified
CPT/HCPCS: 36415; 36600; 71045; 80048; 80053; 82728; 82805; 82962; 83036; 83605; 83615; 83735; 83880; 84443; 84484; 85025; 85379; 85610; 85730; 86141; 87045; 87081; 87426; 87427; 90935; 92950; 93306; 94002; 94640; G0378; J0885; J1100; J1642; J1815; J2405; J3490